=== PATIENT | female | born 1965 ===

== ENCOUNTER 2018-09-03 20:24 | Observation (INO) ==
[2018-09-03] MEDS ORDERED: Nitroglycerin 0.4 MG TAB.SUBL SL PRN (21:02)
[2018-09-03] MEDS ORDERED: *HR* FentaNYL (PF) 100 MCG/2 ML VIAL IVP ONE (21:16)
[2018-09-03 21:21] LABS: Basophils % 0.3 %; Eosinophils # 0.1 K/mcL (0.0-0.6); Eosinophils % 1.7 %; Hematocrit 38.2 % (35.3-44.9); Hemoglobin 12.4 g/dL (11.5-15.4); Immature Granulocytes % 0.3 % (0-4); Lymphocytes # 2.8 K/mcL (0.6-4.6); Lymphocytes % 40.1 %; Mean Corpuscular HGB Conc 32.5 g/dL (31.6-35.5); Mean Corpuscular Hemoglobin 27.1 pg (28.0-33.3); Mean Corpuscular Volume 83.4 fL (83.0-100.0); Mean Platelet Volume 10.7 fL (9.4-12.4); Monocytes # 0.5 K/mcL (0.0-1.3); Monocytes % 7.2 %; Neutrophils # 3.6 K/mcL (1.6-8.9); Platelet Count 194 K/mcL (140-400); Red Blood Count 4.58 M/mcL (3.82-4.97); Red Cell Distribution Width 15.1 % (11.5-14.5); Segmented Neutrophils % 50.4 %
[2018-09-03 21:28] LABS: INR 0.9; Prothrombin Time 10.1 Seconds (9.4-12.1)
[2018-09-03 21:30] LABS: Activated Partial Thrombo Time 36.9 Seconds (26.0-36.0)
[2018-09-03 21:41] LABS: BUN/Creatinine Ratio 12 (6-26); Blood Urea Nitrogen 9 mg/dL (6-20); Calcium 8.8 mg/dL (8.6-10.3); Carbon Dioxide 27 mEq/L (23-29); Chloride 105 mEq/L (98-107); Glucose 99 mg/dL (70-105); Osmolality,Calculated 285 (280-300); Potassium 3.8 mEq/L (3.5-5.1); Sodium 138 mEq/L (136-145); eGFR For Non-African Americans > 60 (> 60)
[2018-09-03 21:42] LABS: Troponin I < 0.03 ng/mL (< 0.04)
--- NOTE | 2018-09-03 22:24 | Emergency Department Note ---
Disposition Clinical Impression: Chest pain, rule out acute myocardial infarction Disposition: Admitted As Inpatient Condition: Fair Forms: ED Satisfaction Letter Time of Disposition: 22:00 Chest Pain HPI - General Chief Complaint: ED Chest Pain Stated Complaint: CP Time Seen by Provider: 09/03/18 20:32 Source: patient Mode of arrival: ambulatory Limitations: no limitations Vital Signs Reviewed: Yes Nursing Notes Reviewed: Yes - History of Present Illness HPI Narrative: 52-year-old female presents emergency Department with concerns of acute onset chest pain. Patient states the pain as a pressure in her chest that radiates to her left jaw and her left upper extremity. She reports history of previous SD. She does not have any stents in her heart. She does not take anticoagulants. She has a history of diabetes, high blood pressure, high cholesterol. Patient reported associated nausea and diaphoresis. She reported feeling near syncopal. EKG showed normal sinus rhythm with a rate of 84 without evidence of dysrhythmia or other ischemia. Patient denied abdominal pain, diarrhea, vomiting, rash, recent trauma, changes in her medications. She recently moved here from [place] and does not have primary care or cardiology. Severity scale (1-10): 10 - Related Data Home Medications Medication Instructions Recorded Confirmed Advair 100-50 Diskus 08/08/18 Albuterol Sulfate 08/08/18 Crestor 08/08/18 [facility] Calcium 600-D3 Plus Tablet 08/08/18 DULoxetine 08/08/18 Diflucan 08/08/18 Estradiol 08/08/18 Famotidine 08/08/18 Glucosamine-Chondroitin 08/08/18 Hydroxyzine HCl 08/08/18 Losartan 08/08/18 Omeprazole 08/08/18 PredniSONE 08/08/18 Quetiapine Fumarate 08/08/18 Triamcinolone Acet 0.1% CRM 08/08/18 Ventolin Hfa 08/08/18 Zofran 08/08/18 metFORMIN 08/08/18 Previous Rx's Medication Instructions Recorded Doxycycline 100 mg PO BID #20 capsule 08/08/18 Promethazine/Dextromethorphan 5 ml PO Q4-6H PRN #200 ml 08/08/18 [Promethazine-Dm Solution] Allergies Allergy/AdvReac Type Severity Reaction Status Date / Time dulaglutide [From [facility]] Allergy Hives Verified 08/08/18 09:28 Erythromycin Base AdvReac Palpitation Verified 08/08/18 09:28 s ibuprofen AdvReac Vomiting Verified 08/08/18 09:28 All systems ED: reviewed and negative except as stated. Review of Systems: As Per HPI Chest Pain PMH - Past Medical History Medical history: Reports: COPD, diabetes, GERD, hyperlipidemia, hypertension - Social History Smoking Status: Current every day smoker Alcohol use: Reports: none Drug use: Reports: marijuana Physical Exam General: Alert and in no acute distress Skin: Warm, dry, intact Head: Normocephalic and atraumatic Neck: Supple, trachea midline and no tenderness Cardiovascular: RRR, no murmur, normal perfusion Respiratory: CTAB, no wheezing, cough, or respiratory distress Musculoskeletal: Normal strength, no tenderness, swelling or deformity GI: Soft, nontender, nondistended. Bowel sounds present Neuro: A&O to person, place, time and situation. No focal deficits noted on exam Psychiatric: cooperative and appropriate mood and affect. - General Limitations: no limitations General appearance: alert, in no apparent distress Course Vital Signs Temperature 99.1 F 09/03/18 20:25 Pulse Rate 98 09/03/18 20:25 Respiratory Rate 18 09/03/18 20:25 Blood Pressure 192/126 09/03/18 20:25 O2 Sat by Pulse Oximetry 96 09/03/18 20:25 Temperature 99.1 F 09/03/18 20:42 Pulse Rate 98 09/03/18 20:42 Respiratory Rate 18 09/03/18 20:42 Blood Pressure 192/126 09/03/18 20:42 O2 Sat by Pulse Oximetry 96 09/03/18 20:42 Oxygen Delivery Oxygen Delivery Room Air Chest Pain - [facility] Narrative Medical decision making narrative: Patient blood pressure was elevated during the initial evaluation, she stated her initial blood pressure was 190s systolic at home. In the emergency department her systolic blood pressure is 166. She was given nitroglycerin to treat her chest pain which also helped with her blood pressure. She is then given fentanyl to again treat her pain. EKGs did not show evidence of STEMI. Patient felt comfortable with the plan for admission to hospital for continuation of care. - Medical Records Medical records reviewed: Yes I reviewed the patient's medical records. - Lab Data Lab results reviewed: Yes I reviewed the patient's lab results. Result diagrams: 09/03/18 20:59 09/03/18 20:59 Lab Results 09/03/18 09/03/18 09/03/18 Range/Units 20:59 20:59 20:59 WBC 7.0 (4.3-11.1) K/mcL RBC 4.58 (3.82-4.97) M/mcL Hgb 12.4 (11.5-15.4) g/dL Hct 38.2 (35.3-44.9) % MCV 83.4 (83.0-100.0) fL MCH 27.1 L (28.0-33.3) pg MCHC 32.5 (31.6-35.5) g/dL RDW 15.1 H (11.5-14.5) % Plt Count 194 (140-400) K/mcL MPV 10.7 (9.4-12.4) fL Immature Gran % 0.3 (0-4) % Seg Neutrophils % 50.4 % Lymphocytes % 40.1 % Monocytes % 7.2 % Eosinophils % 1.7 % Basophils % 0.3 % Neutrophils # 3.6 (1.6-8.9) K/mcL Lymphocytes # 2.8 (0.6-4.6) K/mcL Monocytes # 0.5 (0.0-1.3) K/mcL Eosinophils # 0.1 (0.0-0.6) K/mcL Basophils # 0.0 (0.0-0.2) K/mcL PT 10.1 (9.4-12.1) Seconds INR 0.9 APTT 36.9 H (26.0-36.0) Seconds D-Dimer 403 (0-500) ng/mLFEU Sodium (136-145) mEq/L Potassium (3.5-5.1) mEq/L Chloride (98-107) mEq/L Carbon Dioxide (23-29) mEq/L BUN (6-20) mg/dL Creatinine (0.60-1.20) mg/dL Est GFR ( Amer) (> 60) Est GFR (Non-Af Amer) (> 60) BUN/Creatinine Ratio (6-26) Glucose (70-105) mg/dL Calculated Osmolality (280-300) Lactic Acid (0.5-2.2) mmol/L Calcium (8.6-10.3) mg/dL Troponin I (< 0.04) ng/mL B-Natriuretic Peptide 17 (Less than 100) pg/mL 09/03/18 09/03/18 Range/Units 20:59 20:59 WBC (4.3-11.1) K/mcL RBC (3.82-4.97) M/mcL Hgb (11.5-15.4) g/dL Hct (35.3-44.9) % MCV (83.0-100.0) fL MCH (28.0-33.3) pg MCHC (31.6-35.5) g/dL RDW (11.5-14.5) % Plt Count (140-400) K/mcL MPV (9.4-12.4) fL Immature Gran % (0-4) % Seg Neutrophils % % Lymphocytes % % Monocytes % % Eosinophils % % Basophils % % Neutrophils # (1.6-8.9) K/mcL Lymphocytes # (0.6-4.6) K/mcL Monocytes # (0.0-1.3) K/mcL Eosinophils # (0.0-0.6) K/mcL Basophils # (0.0-0.2) K/mcL PT (9.4-12.1) Seconds INR APTT (26.0-36.0) Seconds D-Dimer (0-500) ng/mLFEU Sodium 138 (136-145) mEq/L Potassium 3.8 (3.5-5.1) mEq/L Chloride 105 (98-107) mEq/L Carbon Dioxide 27 (23-29) mEq/L BUN 9 (6-20) mg/dL Creatinine 0.76 (0.60-1.20) mg/dL Est GFR ( Amer) > 60 (> 60) Est GFR (Non-Af Amer) > 60 (> 60) BUN/Creatinine Ratio 12 (6-26) Glucose 99 (70-105) mg/dL Calculated Osmolality 285 (280-300) Lactic Acid 1.1 (0.5-2.2) mmol/L Calcium 8.8 (8.6-10.3) mg/dL Troponin I < 0.03 (< 0.04) ng/mL B-Natriuretic Peptide (Less than 100) pg/mL - Radiology Data Radiology results reviewed: Yes I reviewed the patient's radiology results. - EKG Data EKG attestation: Yes I reviewed and interpreted this EKG. EKG results narrative: EKG #1 normal sinus rhythm with rate of 84 without evidence of STEMI or other dysrhythmia. QTC 446, QRS 89. EKG #2, no sinus rhythm with a rate of 81 without evidence of STEMI or other ischemia or dysrhythmia. QTC 454, QRS 89 Heart Score - Score History: Moderately Suspicious EKG: Normal Age: 45-65 Risk Factors: Equal/Greater than 3 risk factor or history of atherosclerotic disease Troponin: Less than normal limit HEART Score Total: 4
[2018-09-03] MEDS ORDERED: Aspirin 81 MG TAB.CHEW PO ONE (23:04)
[2018-09-04] MEDS ORDERED: Dextrose Gel 15 GM/37.5 ML TUBE PO PRN ×2 (01:18)
[2018-09-04] MEDS ORDERED: *HR* Dextrose 50 % in Water (Syg) 50 ML SYRINGE IVP PRN (01:18)
[2018-09-04] MEDS ORDERED: D5% in Water 1,000 ML IVC PRN (01:18)
[2018-09-04] MEDS ORDERED: Naloxone 0.4 MG/ML INJ IVP PRN (01:21)
[2018-09-04] MEDS ORDERED: *HR* HYDROcodone/Acet 5/325 mg TABLET PO PRN (01:21)
[2018-09-04] MEDS ORDERED: Acetaminophen 325 MG TABLET PO PRN (01:21)
[2018-09-04] MEDS ORDERED: *HR* Morphine 2 MG/ML SYRINGE IVP ONE (01:25)
[2018-09-04] MEDS ORDERED: Insulin LISPRO 300 UNITS/3 ML VIAL SQ SCH (01:30)
[2018-09-04] MEDS ORDERED: Ipratropium/Albuterol Neb 3 ML IH PRN (02:00)
--- NOTE | 2018-09-04 02:09 | Internal Med History&Physical ---
Date of Encounter: 09/04/18 Time of Encounter: 00:45 Internal Medicine - H&P: HPI Chief complaint: CP Admitted From: Emergency Dept Plans for Post Hospital Care: Home History of present illness: Ms. Cotto is a 52 year old female w/PMH of interstitial lung disease, diabetes, GERD, asthma, HLD, HTN, and current tobacco abuse presents from the ED w/CC of CP that began yesterday morning at 11:00 at rest and presented as pressure under left breast which radiated to left neck and left arm. Associated symptoms: Diaphoresis, dizziness, nausea, fatigue, and headache. Pt. stated she took 2 losartan and 2 aspirin and slept for 4 hours. BP was 196/113 when she woke up at 21:00. Reports hx of [place] @ age 40. No alleviating or aggravating factors. Patient denies recent illness, fever, chills, vomiting, changes in vision, unus ual bleeding, abdominal pain, lightheadedness, diarrhea, constipation, numbness, tingling, pre-syncope, or syncope. Past Med Surg Social Fam HX - Past Medical History Source: patient, old records reviewed Medical history: arthritis, diabetes, GERD, hyperlipidemia, hypertension, myocardial infarction (At age 40) Additional medical history: DEGENERATIVE DISC DISEASE. LUNG DISEASE Psychiatric history: no psych history - Past Surgical History Surgical History: appendectomy, cholecystectomy, hysterectomy, thyroidectomy - Social History Smoking Status: Current every day smoker Packs per day: 5-7 cigarettes daily Smokeless Tobacco Status: No Alcohol use: none Drug use: marijuana Current living situation: Home Activity Level: Independent ambulation Recent Out of Country Travel Within the Last 8 Weeks: No Exposure or Possible Exposure to Illness During Travel: No - Family History Father Race: Family Member Ethnicity: Non- Living Status: Age at : 70 Cause of : DM Hx Family Endocrine Disorder: Yes (DM) Mother Race: Family Member Ethnicity: Non- Living Status: Still Living Hx Family Cardiac Disorders: Yes ([place], HTN, HLD) Hx Family Endocrine Disorder: Yes (DM) Brother Race: Family Member Ethnicity: Non- Living Status: Still Living Hx Family Cardiac Disorders: Yes (CAD) Sister Race: Family Member Ethnicity: Non- Living Status: Still Living Hx Family Cardiac Disorders: Yes (HTN) Hx Family Endocrine Disorder: Yes (DM) Internal Medicine - H&P: Meds Calcium Carbonate [Calcium] 1,000 mg PO BID 09/03/18 [History] Famotidine [Pepcid] 40 mg PO BID 09/03/18 [History] HydrOXYzine 20 mg PO DAILY 09/03/18 [History] Losartan [Cozaar] 100 mg PO DAILY 09/03/18 [History] Mv,Ca,Min/Folic Acid/Vit K1 [One-A-Day Women's 50 Plus Tab] 1 tab PO DAILY 09/03/18 [History] Omeprazole [PriLOSEC] 40 mg PO DAILY 09/03/18 [History] Quetiapine Fumarate [Seroquel Xr] 200 mg PO HS 09/03/18 [History] Rosuvastatin Calcium [Crestor] 10 mg PO HS 09/03/18 [History] metFORMIN [Glucophage] 500 mg PO BID 09/03/18 [History] Allergy/AdvReac Type Severity Reaction Status Date / Time dulaglutide [From [facility]] Allergy Hives Verified 08/08/18 09:28 Erythromycin Base AdvReac Palpitation Verified 08/08/18 09:28 s ibuprofen AdvReac Vomiting Verified 08/08/18 09:28 All Systems PM: A 10-system review of systems was performed and is negative for pertinent findings except as documented above in the HPI. - Constitutional Constitutional: as per HPI, weakness, no chills, no fever(s), no night sweats - EENT Eyes: no change in vision, no discharge, no pain, no photophobia Ears: no ear discharge, no ear pain, no tinnitus Nose, mouth and throat: no dysphagia, no nasal discharge, no neck pain, no sore throat - Breasts Breasts: as per HPI - Cardiovascular Cardiovascular ROS IM: as per HPI, chest pain, diaphoresis, dyspnea, dyspnea on exertion, lightheadedness, no palpitations, no syncope - Respiratory Respiratory: as per HPI, cough, dyspnea, dyspnea on exertion, no wheezing, no excessive phlegm production - Gastrointestinal Gastrointestinal: as per HPI, nausea, no abdominal pain, no diarrhea, no hematemesis, no hematochezia, no melena, no vomiting - Genitourinary Genitourinary: no change in urinary stream, no dysuria, no flank pain, no hematuria Menstruation: as per HPI, post hysterectomy - Musculoskeletal Musculoskeletal ROS IM: as per HPI, no numbness, no tingling - Integumentary Integumentary IM: no rash, no unusual bruising - Neurological Neurological ROS: no confusion, no convulsions, no focal weakness, no numbness, no tingling, no tremor(s) - Psychiatric Psychiatric: as per HPI - Endocrine Endocrine IM: as per HPI - Hematologic/Lymphatic Hematologic/Lymphatic: no easy bruising - Allergic/Immunologic Allergic/Immunologic: as per HPI - Constitutional Vitals: Temp Pulse Resp BP Pulse Ox 98.1 F 72 16 154/91 97 09/04/18 00:56 09/04/18 00:56 09/04/18 00:56 09/04/18 00:56 09/04/18 00:56 General appearance: Present: cooperative, mild distress (CP), A&O X 3, pleasant, obese, answers questions appropriately Exam: Patient examined at bedside. Patient reports intermittent chest pressure while at rest and elevated BP. Patient reports symptoms diaphoresis, dizziness, nausea, fatigue, and headache during chest pain symptoms but denies any other symptoms or complaints at this time. VS: 98.1F temp, HR 72, RR 16, BP 154/91, SPO2 97% on room air. - Head Head exam: Present: atraumatic, normocephalic - Eye Eye exam: Present: PERRL, conjuntiva pink, sclera anicteric Pupils: Present: PERRL - ENT ENT exam: Present: normal exam - Neck Neck exam general surgery: Present: normal inspection, supple, trachea midline. Absent: lymphadenopathy - Respiratory Respiratory exam: Present: CTAB. Absent: accessory muscle use, rales, rhonchi, wheezes - Cardiovascular Cardiovascular exam: Present: RRR, +S1, +S2. Absent: diastolic murmur, gallop, rubs, systolic murmur - GI/Abdominal GI/Abdominal exam: Present: normal bowel sounds, soft, no peritoneal signs. Absent: distended, tenderness - Rectal Rectal exam: Present: deferred - Additional comments: exam deferred. - Extremities Exam Extremities exam: Present: warm, radial pulses palpable and symmetrical. Absent: calf tenderness, cyanotic, pedal edema - Back Exam Back exam: Present: normal inspection - Neurological Exam Neurological exam: Present: alert, CN II-XII intact, oriented X3, no focal deficits. Absent: pronater drift, facial droop, speech deficit - Psychiatric Psychiatric exam: Present: normal affect, normal mood - Skin Skin exam: Present: dry, intact Internal Med - H&P Results - Labs CBC & Chem 7: 09/03/18 20:59 09/03/18 20:59 Labs: Short CBC 09/03/18 Range/Units 20:59 WBC 7.0 (4.3-11.1) K/mcL Hgb 12.4 (11.5-15.4) g/dL Hct 38.2 (35.3-44.9) % Plt Count 194 (140-400) K/mcL Neutrophils # 3.6 (1.6-8.9) K/mcL BMP 09/03/18 20:59 Sodium 138 Potassium 3.8 Chloride 105 Carbon Dioxide 27 BUN 9 Creatinine 0.76 Glucose 99 Calcium 8.8 Cardiac Enzymes 09/03/18 Range/Units 20:59 Troponin I < 0.03 (< 0.04) ng/mL - EKG Data EKG shows normal: sinus rhythm - EKG Data Prior EKG available for review: no EKG comments: 09/04/18 02:18 EKG dated 09/03/18 shows sinus rhythm and normal ECG. - Impressions ITS Impressions Chest X-Ray 09/03/18 20:28 IMPRESSION: No acute process. D/ / Nehemiah Bradshaw MD / Nehemiah Bradshaw MD Interpreting Provider: Nehemiah Bradshaw MD - Diagnostic Studies Chest x-ray Additional comments: Impressions Chest X-Ray 09/03/18 20:28 IMPRESSION: No acute process. D/ / Nehemiah Bradshaw MD / Nehemiah Bradshaw MD Interpreting Provider: Nehemiah Bradshaw MD - Assessment and plan (1) Chest pain, rule out acute myocardial infarction Current Visit: Yes Status: Acute Assessment and plan: Acute CP that began yesterday morning at 11:00 at rest and presented as pressure under left breast which radiated to left neck and left arm. Associated symptoms: Diaphoresis, dizziness, nausea, fatigue, and headache. Pt. stated she took 2 losartan and 2 aspirin and slept for 4 hours. BP was 196/113 when she woke up at 21:00. Reports hx of [place] @ age 40. Denies recent cardiac work-up or stent placement. No alleviating or aggravating factors. Initial troponin <0.03. Will trend. ASA. 40 mg Crestor ONCE. Will continue 20 mg Lipitor Monday HS. Continuous cardiac telemetry. Echocardiogram. NPO at midnight for a.m. nuclear pharm stress test if troponins remain WNL. Consider adding Cardiology consult if troponins, Echocardiogram, and/or Stress test results abnormal. Patient is high risk for cardiac event and further morbidity d/t current CP at rest and w/o alleviating factors, hx of previous [place] @ age 40; and current risk factors of diabetes, HLD, HTN, obesity, and current tobacco abuse. Observation. (2) Nausea Current Visit: Yes Status: Acute Assessment and plan: Acute nausea accompanying CP sx. IVP Zofran 4 mg every 6 hours when necessary for nausea and vomiting. Monitor I&O. (3) Interstitial lung disease Current Visit: Yes Status: Chronic Assessment and plan: Hx of chronic interstitial lung disease. Continue patient's inhalers. DuoNeb's every 6 when necessary. Supplemental O2 with titration and SPO2 monitoring. Mucinex for cough. (4) Diabetes Current Visit: Yes Status: Chronic Assessment and plan: Hx of chronic diabetes. Hold patient's metformin and administer low-dose correction sliding scale insulin with hypoglycemic protocol. BG checks before meals and at bedtime. Q6HR during NPO status for nuclear pharm stress test. A1c in a.m. labs. Qualifiers: Diabetes mellitus type: type 2 Diabetes mellitus alf insulin use: unspecified alf insulin use status Diabetes mellitus complication status: with unspecified complications Qualified Code(s): E11.8 - Type 2 diabetes mellitus with unspecified complications (5) GERD (gastroesophageal reflux disease) Current Visit: Yes Status: Chronic Assessment and plan: Hx of chronic GERD. Continue patient's by mouth Pepcid and Prilosec. IVP Zofran 4 mg every 6 hours when necessary for nausea and vomiting. Qualifiers: Esophagitis presence: esophagitis presence not specified Qualified Code(s): K21.9 - Gastro-esophageal reflux disease without esophagitis (6) Asthma Current Visit: Yes Status: Chronic Assessment and plan: Hx of chronic asthma. Continue pts. inhalers. Qualifiers: Asthma severity: unspecified severity Asthma persistence: intermittent Asthma complication type: unspecified Qualified Code(s): J45.20 - Mild intermittent asthma, uncomplicated (7) HTN (hypertension) Current Visit: Yes Status: Chronic Assessment and plan: Hx of chronic HTN. Monitor pt. and VS. Continue pts. Hydroxyzine and Cozaar. Qualifiers: Hypertension type: essential hypertension Qualified Code(s): I10 - Essential (primary) hypertension (8) HLD (hyperlipidemia) Current Visit: Yes Status: Chronic Assessment and plan: Hx of chronic HLD. Lipid panel in a.m. labs. Crestor 40 mg ONCE. Continue 20 mg HS dosing of Lipitor on Monday. Qualifiers: Hyperlipidemia type: pure hypercholesterolemia Qualified Code(s): E78.00 - Pure hypercholesterolemia, unspecified; E78.0 - Pure hypercholesterolemia (9) DVT prophylaxis Current Visit: Yes Status: Acute Assessment and plan: Heparin 5,000 units SQ Q8HR for DVT prophylaxis. Monitor pt. for signs of bleeding. - Time Spent With Patient Total time spent is greater than 50% in coordination of care (as documented) at patient's floor/unit and/or counseling patient: Greater than 35 minutes
[2018-09-04] MEDS ORDERED: Ondansetron 4 MG/2 ML VIAL IVP PRN (02:30)
[2018-09-04 03:53] LABS: Basophils % 0.3 %; Eosinophils # 0.1 K/mcL (0.0-0.6); Eosinophils % 2.2 %; Hematocrit 37.6 % (35.3-44.9); Immature Granulocytes % 0.2 % (0-4); Lymphocytes # 2.7 K/mcL (0.6-4.6); Lymphocytes % 45.3 %; Mean Corpuscular HGB Conc 31.9 g/dL (31.6-35.5); Mean Corpuscular Hemoglobin 26.8 pg (28.0-33.3); Mean Corpuscular Volume 84.1 fL (83.0-100.0); Mean Platelet Volume 10.8 fL (9.4-12.4); Monocytes # 0.4 K/mcL (0.0-1.3); Monocytes % 7.5 %; Neutrophils # 2.6 K/mcL (1.6-8.9); Platelet Count 195 K/mcL (140-400); Red Blood Count 4.47 M/mcL (3.82-4.97); Segmented Neutrophils % 44.5 %
[2018-09-04 04:14] LABS: Alanine Aminotransferase 18 Units/L (7-52); Albumin 3.5 g/dL (3.5-5.7); Albumin/Globulin Ratio 1.3 (1.1-2.2); Alkaline Phosphatase 90 Units/L (34-104); Aspartate Amino Transferase 13 Units/L (13-39); BUN/Creatinine Ratio 12 (6-26); Bilirubin,Total 0.2 mg/dL (0.3-1.0); Blood Urea Nitrogen 8 mg/dL (6-20); Calcium 8.6 mg/dL (8.6-10.3); Carbon Dioxide 26 mEq/L (23-29); Chloride 109 mEq/L (98-107); Chol/HDL Ratio 2.8 (0-4.9); Cholesterol 157 mg/dL (< 200); Globulin 2.7 g/dL (2.4-3.5); Glucose 90 mg/dL (70-105); HDL Cholesterol 57 mg/dL (40-59); LDL Cholesterol,Calculated 84 mg/dL (0-99); Magnesium 1.8 mg/dL (1.6-2.6); Osmolality,Calculated 284 (280-300); Potassium 3.8 mEq/L (3.5-5.1); Sodium 138 mEq/L (136-145); Total Protein 6.2 g/dL (6.4-8.9); Triglycerides 80 mg/dL (< 150); eGFR For Non-African Americans > 60 (> 60)
[2018-09-04] MEDS ORDERED: Regadenoson 0.4 MG/5 ML SYRINGE IVP ONE (05:53)
[2018-09-04] MEDS ORDERED: *HR* Heparin 5,000 UNIT/ML VIAL SQ SCH (06:00)
[2018-09-04] MEDS ORDERED: Aspirin Enteric Coated 81 MG Tablet PO SCH (09:00)
[2018-09-04] MEDS ORDERED: Famotidine 20 MG TABLET PO SCH (09:00)
[2018-09-04 11:29] VITALS: BP 146/95
[2018-09-04] MEDS: Insulin LISPRO 300 UNITS/3 ML VIAL SQ SCH ×2 (12:13→12:18)
--- NOTE | 2018-09-04 13:20 | Discharge Summary ---
- NOTES TO OUTPATIENT PROVIDER Notes to Outpatient Provider: f/u on BP; HTN episodes during stay. Added HCTZ to Losartan regimen. Presented with CP; ACS ruled. Negative stress, EKG without ischemic changes and Troponins normal x3; no events on tele. CP is atypical and worse with palpation and respirations Orders not resulted at time of discharge: Pending orders 09/04/18 01:21 NM anushka perf SPECT multi [NM] Routine 09/05/18 04:00 Complete Blood Count [HEME] AM 0400 Comprehensive Metabolic Panel AM 0400 09/06/18 04:00 Complete Blood Count [HEME] AM 0400 Comprehensive Metabolic Panel AM 0400 09/07/18 04:00 Complete Blood Count [HEME] AM 0400 Comprehensive Metabolic Panel AM 0400 Date of Encounter: 09/04/18 Time of Encounter: 13:18 - Discharge Diagnosis (1) Interstitial lung disease Priority: Secondary Status: Chronic (2) Diabetes Priority: Secondary Status: Chronic Qualifiers: Diabetes mellitus type: type 2 Diabetes mellitus fci insulin use: unspecified fci insulin use status Diabetes mellitus complication status: with unspecified complications Qualified Code(s): E11.8 - Type 2 diabetes mellitus with unspecified complications (3) GERD (gastroesophageal reflux disease) Priority: Secondary Status: Chronic Qualifiers: Esophagitis presence: esophagitis presence not specified Qualified Code(s): K21.9 - Gastro-esophageal reflux disease without esophagitis (4) Asthma Priority: Secondary Status: Chronic Qualifiers: Asthma severity: unspecified severity Asthma persistence: intermittent Asthma complication type: unspecified Qualified Code(s): J45.20 - Mild intermittent asthma, uncomplicated (5) HTN (hypertension) Priority: Secondary Status: Chronic Qualifiers: Hypertension type: essential hypertension Qualified Code(s): I10 - Essential (primary) hypertension (6) HLD (hyperlipidemia) Priority: Secondary Status: Chronic Qualifiers: Hyperlipidemia type: pure hypercholesterolemia Qualified Code(s): E78.00 - Pure hypercholesterolemia, unspecified; E78.0 - Pure hypercholesterolemia (7) Nausea Priority: Secondary Status: Acute (8) DVT prophylaxis Priority: Secondary Status: Acute Hospital course: Ms. Cotto is a 52 year old female who presented with left sided chest pain with radiation to left neck and arm. She was also noted to have HTN urgency. Chest pain with atypical presentation; worse with palpation to left chest and with inspiration. No prior cardiac hx. EKG without acute ST-T changes. Serial trop onins negative x3. On day of d/c she reports that the chest pain is improving and is requesting d/c. She has been instructed to f/u with PCP in 1-week. On d/c I have started her on a combo of Losartan/HCTZ. BP improved. Discharge discussed with: patient, nurse Time spent discussing smoking cessation with patient: 3 to 10 minutes - Time Spent with Patient Total time spent providing and/or coordinating discharge services: Less than 30 minutes - Discharge Medications Prescriptions: Losartan/Hydrochlorothiazide [Losartan-Hctz 100-25 mg Tab] 1 each PO DAILY 30 Days #30 tablet Home Medications: Calcium Carbonate [Calcium] 1,000 mg PO BID 09/03/18 [History] Famotidine [Pepcid] 40 mg PO BID 09/03/18 [History] HydrOXYzine 20 mg PO DAILY 09/03/18 [History] Mv,Ca,Min/Folic Acid/Vit K1 [One-A-Day Women's 50 Plus Tab] 1 tab PO DAILY 09/03/18 [History] Omeprazole [PriLOSEC] 40 mg PO DAILY 09/03/18 [History] Quetiapine Fumarate [Seroquel Xr] 200 mg PO HS 09/03/18 [History] Rosuvastatin Calcium [Crestor] 10 mg PO HS 09/03/18 [History] metFORMIN [Glucophage] 500 mg PO BID 09/03/18 [History] Losartan/Hydrochlorothiazide [Losartan-Hctz 100-25 mg Tab] 1 each PO DAILY 30 Days #30 tablet 09/04/18 [Rx] Allergies/Adverse Reactions: Allergy/AdvReac Type Severity Reaction Status Date / Time dulaglutide [From [facility]] Allergy Hives Verified 08/08/18 09:28 Erythromycin Base AdvReac Palpitation Verified 08/08/18 09:28 s ibuprofen AdvReac Vomiting Verified 08/08/18 09:28 Date of admission: 09/03/18 23:24 Primary care physician: Zunilda Christianson CNP Consults: 09/04/18 01:23 Consult to Documentation Consultant [CONS] Routine Reason for SW Consult: Please assess patient to determine possible home needs for post-discharge planning Discharging clinician: Rigo Galloway Anticipated date of discharge: 09/04/18 - Constitutional Vitals: Temp Pulse Resp BP Pulse Ox 98.6 F 69 18 146/95 98 09/04/18 11:28 09/04/18 11:28 09/04/18 11:28 09/04/18 11:28 09/04/18 11:28 General appearance: Present: cooperative, mild distress (CP), A&O X 3, pleasant, obese, answers questions appropriately Exam: see exam - Head Head exam: Present: atraumatic, normocephalic - Eye Eye exam: Present: PERRL, conjuntiva pink, sclera anicteric Pupils: Present: PERRL - Neck Neck exam general surgery: Present: supple, trachea midline. Absent: lymphadenopathy - Respiratory Respiratory exam: Present: CTAB. Absent: accessory muscle use, rales, rhonchi, wheezes - Cardiovascular Cardiovascular exam: Present: RRR, +S1, +S2. Absent: diastolic murmur, gallop, rubs, systolic murmur - Expanded Cardiovascular Exam Chest and back image: 1 - tenderness to palpation and discomfort with inspiration - GI/Abdominal GI/Abdominal exam: Present: normal bowel sounds, soft, no peritoneal signs. Absent: distended, tenderness - Extremities Exam Extremities exam: Present: warm, radial pulses palpable and symmetrical. Absent: calf tenderness, cyanotic, pedal edema - Neurological Exam Neurological exam: Present: CN II-XII intact, oriented X3, no focal deficits. Absent: pronater drift, facial droop, speech deficit - Skin Skin exam: Present: dry, intact - Patient Status Disposition: Home, Self-Care Condition: Fair Functional capacity at discharge: independent ambulation Overall status at discharge: patient is progressing back to baseline - Discharge Instructions Instructions: Losartan/Hydrochlorothiazide (By mouth), Diabetes Mellitus Type 2 in Adults (DC), Chronic Hypertension (DC) Follow Up With: Zunilda Christianson CNP [Primary Care Provider] - 09/13/18 9:25 am - Diet and Activity Activity: increase activity as tolerated, resume usual activities as tolerated Diet: diabetic diet, low fat, low cholesterol, low salt diet
--- NOTE | 2018-09-05 15:39 | Electrocardiograph Report ---
[address] [address] Test Date: 2018-09-03 Pat Name: Geovany Cotto Department: [id number] Room: 3B39 Gender: [employer] Team Member: : 1965 Requested By: Chris Watkins Order Number: [id number] Reading MD: Kati Jo Measurements Intervals [place] Rate: 81 P: 49 CO: 131 QRS: 52 QRSD: 89 T: 65 QT: 391 QTc: 454 Interpretive Statements Sinus rhythm Electronically Signed On 09-05-2018 15:37:47 EST by Kati Jo
== END 2018-09-04 13:49 | disposition home or self-care (01) ==
LOC: EMEROOARM 20:24 → 3BNU 20:24
PROVIDERS: ADMIT Internal Medicine; ATTEND Internal Medicine